=== PATIENT | male | born 1990 | race African-American/Black ===

== ENCOUNTER 2018-05-09 14:50 | Emergency (ER) | payer OTHER ==
[~2018-05-09] VITALS: Ht 182.9 cm; Wt 83.0 kg
[2018-05-09 15:37] VITALS: BP 134/81
--- NOTE | 2018-05-09 16:52 | NUR ---
PATIENT AMBULATED TO ER CHAIR E.
--- NOTE | 2018-05-09 16:54 | NUR ---
PT IS A 28 Y/O MALE WHO PRESENTS TO THE ED C/O FOOT PAIN X2 DAYS. PT STATES THAT HE WAS PLAYING FOOTBALL AND FELT A TWISTING ON THE L ANKLE/FOOT. PT REPORTS 7/10 L ANKLE PAIN THAT DOES NOT RADIATE. CMS INTACT, FULL ROM, MILD LIMPING. PT AWAKE AND ALERT, RR EVEN/UNLABORED. PT REPOSITIONED FOR COMFORT, BED IN LOWEST POSITION. ER PROVIDER NOTIFIED. WILL CONTINUE TO MONITOR. NO PMH NKA
[2018-05-09] MEDS ORDERED: KETOROLAC 30 MG/ML VIAL IM ONE (17:30)
--- NOTE | 2018-05-09 17:30 | NUR ---
PATIENT TAKEN TO XRAY VIA WHEELCHAIR WITH TECH.
--- NOTE | 2018-05-09 17:40 | NUR ---
PATIENT RETURN FROM XRAY.
--- NOTE | 2018-05-09 18:20 | NUR ---
[facility] placing scotty wrap
[2018-05-09 18:22] VITALS: BP 140/87
--- NOTE | 2018-05-09 18:23 | NUR ---
Patient discharged with v/s stable. Written and verbal after care instructions given and explained. Patient alert, oriented and verbalized understanding of instructions. Ambulatory with steady gait. All questions addressed prior to discharge. ID band removed. Patient advised to follow up with PMD. Rx of tylenol, ibuprofen given. Patient educated on indication of medication including possible reaction and side effects. Opportunity to ask questions provided and answered.
== END 2018-05-09 18:23 | disposition home or self-care (01) ==
LOC: MED 14:50
DX: S93.402A Sprain of unspecified ligament of left ankle, initial encounter (principal); X50.1XXA Overexertion from prolonged static or awkward postures, initial encounter; Y93.61 Activity, american tackle football; Y92.89 Other specified places as the place of occurrence of the external cause; Y99.8 Other external cause status
CPT/HCPCS: 73610; 73630; 96372; 99283; J1885; Q0092

== ENCOUNTER 2023-03-09 10:43 | Emergency (ER) | payer OTHER ==
[~2023-03-09] VITALS: Ht 177.8 cm; Wt 84.4 kg
[2023-03-09 10:51] VITALS: BP 153/101; PULSE 75; RESP 20; RESP 73; TEMP 97.7; O2SAT 100
[2023-03-09] MEDS ORDERED: ACETAMINOPHEN EXTRA STRENGTH 500 MG TAB PO ONE (11:50)
[2023-03-09] MEDS ORDERED: KETOROLAC 30 MG/ML VIAL IM ONE (11:50)
[2023-03-09] MEDS ORDERED: LIDOCAINE 5% 1 EA PATCH TP ONE (11:50)
[2023-03-09] MEDS ORDERED: ACET-10509 PO (13:03)
[2023-03-09] MEDS ORDERED: IBUP-2213 PO (13:03)
[2023-03-09] MEDS ORDERED: LID5T TP (13:03)
[2023-03-09 13:24] VITALS: BP 135/98; PULSE 75; RESP 20; TEMP 97.7; O2SAT 100
== END 2023-03-09 13:20 | disposition home or self-care (01) ==
LOC: MED 10:43
DX: S39.012A Strain of muscle, fascia and tendon of lower back, initial encounter (principal); S33.5XXA Sprain of ligaments of lumbar spine, initial encounter; Z79.899 Other long term (current) drug therapy; Z79.1 Long term (current) use of non-steroidal anti-inflammatories (NSAID); X58.XXXA Exposure to other specified factors, initial encounter; Y92.89 Other specified places as the place of occurrence of the external cause; Y93.89 Activity, other specified; Y99.8 Other external cause status
CPT/HCPCS: 96372; 99283; J1885